=== PATIENT | female | born 1940 | race Caucasian/White ===

== ENCOUNTER 2016-11-26 23:59 | Emergency (ER) | payer MEDICARE, BC ==
--- NOTE | ~2016-11-26 | CT4 ---
[facility] A Service of [facility] RADIOLOGY TEXT RESULTS PATIENT: ELIZABETH WILLIAM LOCATION: [place] : 40 UNIT #: [id number] AGE: [address]: Oscar Cheek DO SEX: F ORDER DR: [id number] [facility] [address] [place], [place] [address] [id number] E MR#: [id number] Acc #: [id number] NAME: ELIZABETH WILLIAM : 1940 SEX: F STUDY DATE/TIME: 11/27/2016 2:03 UNIT: [facility] ROOM: STUDY DESCRIPTION: CT Abd and Pelv Wo Cont Attending Physician: Oscar Cheek D.O. Ordering Physician: Oscar Cheek D.O. Primary Care Physician: Thompson Prather M.D. MEDICAL IMAGING REPORT This report is preliminary unless electronic signature is present EXAM CT abdomen and pelvis without contrast INDICATIONS Right flank pain for 2 days. COMPARISON 09/15/2014 TECHNIQUE Axial 5-mm images were obtained through the abdomen and pelvis without IV or oral contrast. This CT exam was performed with one or more of the following radiation dose reduction techniques: Automatic exposure control, adjustment of mA and/or kV according to patient size, and iterative reconstruction. FINDINGS The lung bases are clear. There is a moderate-sized hiatal hernia. The liver, gallbladder, spleen, pancreas, adrenal glands and kidneys are normal. There are no urinary stones or obstruction. The bladder, uterus and adnexal regions are normal. The aorta is normal in size. The bowel, including the appendix, appears normal. Bones are unremarkable except for mild degenerative changes. IMPRESSION 1. No urinary stones are identified. 2. The appendix is normal. 3. Hiatal hernia. 4. Otherwise normal. [facility] A Service [facility] RADIOLOGY TEXT RESULTS PATIENT: ELIZABETH WILLIAM LOCATION: [place] : 40 UNIT #: [id number] AGE: [address]: Hottman,Oscar M DO SEX: F ORDER DR: Dictated by... Emeka Ram M.D. THIS IS AN ELECTRONICALLY VERIFIED REPORT Emeka Ram M.D. at 11/27/2016 5:51 AM DENG/clara TD: 11/27/2016 03:37 JOB #: [id number] MEDICAL IMAGING REPORT Page 1 of 1 COPY
[~2016-11-26 23:59] MED LIST: LISINOPRIL10 MG PO; MERREM500 MG INJ; PRAVACHOL PO; PRAVACHOL20 MG PO; TYLENOL325 M1 PO; ZESTORETIC 20-1 EAC1 PO; ZESTORETIC 20/11 TAB PO
[2016-11-27 00:41] LABS: BASOPHIL% 0.5 % (0-2.5); EOSINOPHIL# 0.2 X10e3 (0-0.7); EOSINOPHIL% 2.3 % (0.0-7.0); HEMATOCRIT 35.2 % (35.0-45.0); HEMOGLOBIN 11.7 gm/dL (12.0-16.0); LYMPHOCYTE# 0.6 X10e3 (1.0-3.5); LYMPHOCYTE% 8.6 % (17.0-45.0); MEAN CELL VOLUME 91.5 FL (83-96); MEAN CORPUSCULAR HEMOGLOBIN 30.4 PG (28-34); MEAN CORPUSCULAR HGB CONC 33.2 g/dL (30-36); MEAN PLATELET VOLUME 8.8 FL (6.5-11.5); MONOCYTE# 0.5 X10e3 (0-1.0); MONOCYTE% 6.4 % (3.0-12.0); NEUTROPHIL# 5.9 X10e3 (1.5-7.1); NEUTROPHIL% 82.2 % (40-75); PLATELET COUNT 165 X10e3 (140-420); RED BLOOD COUNT 3.84 X10e (3.90-5.30); RED CELL DISTRIBUTION WIDTH 12.8 % (11.0-15.5); WHITE BLOOD COUNT 7.2 X10e3 (4.0-10.5)
[2016-11-27 00:42] LABS: DIFF IND NO
[2016-11-27 01:04] LABS: ALBUMIN SERUM 3.9 g/dL (3.5-5.0); BILIRUBIN,TOTAL 0.8 mg/dL (0.2-2.0); CALCIUM SERUM 9.3 mg/dL (8.4-10.2); GLOM FILT RATE Estimated 54.7 mL/min (>60); POTASSIUM 3.5 mmol/L (3.5-5.1); PROTEIN TOTAL SERUM 6.7 g/dL (6.0-8.3)
[2016-11-27 03:56] LABS: URINE SOURCE CLEAN CATCH
[2016-11-27 04:00] LABS: URINE APPEARANCE CLEAR; URINE BILIRUBIN NEG (NEG); URINE BLOOD NEG (NEG); URINE COLOR YELLOW; URINE GLUCOSE NEG (NEG); URINE KETONE NEG (NEG); URINE LEUKOCYTE ESTERASE 1+ (NEG); URINE NITRATE NEG (NEG); URINE PH 5.5 (5-8); URINE PROTEIN NEG (NEG); URINE SPECIFIC GRAVITY 1.006 (1.003-1.035); URINE UROBILINOGEN 0.2 MG/DL (NEG)
[2016-11-27 04:03] LABS: CULTURE INDICATED? NO; URBCS1 AUWI 0-2 /[HPF] (0-2); URINE BACTERIA AUWI NEG (NEGATIVE); URINE SQUAMOUS EPITHELIAL CELL NONE SEEN /[HPF]; UWBCS1 AUWI 0-2 (0-5)
[2016-11-27 05:09] LABS: POC - CKMB 1.2 ng/mL (0.0-7.9); POC - TROPONIN <0.05 ng/mL (<=0.05)
== END 2016-11-27 05:33 | disposition home or self-care (01) ==
LOC: CED 23:59
PROVIDERS: Emergency Medicine
DX: M54.9 Dorsalgia, unspecified (principal); I11.0 Hypertensive heart disease with heart failure; I50.9 Heart failure, unspecified; E78.5 Hyperlipidemia, unspecified
CPT/HCPCS: 36415; 74176; 80053; 81003; 82553; 83690; 84484; 85025; 85379; 96374; 96375; 99284; J1885; J2270; J2405